=== PATIENT | female | born 1950 | race African-American/Black ===

== ENCOUNTER 2017-02-22 14:45 | Emergency (ER) | payer BC, OTHER ==
[~2017-02-22] VITALS: Ht 172.7 cm; Wt 128.8 kg
[~2017-02-22 14:45] MED LIST: ALDACTONE25 MG PO; ASPIRIN325 PO; CALCIUM 600 +1 EAC1 PO; CARVEDILOL12.5 MG PO; CIPRO500 MG PO; CLINDAMYCIN HC150 MG PO; COLACE100 MG PO; COREG25 MG PO; CYMBALTA60 MG PO; FLAGYL500 MG PO; GLUCOTROL5 MG PO; HUMALOG100 UNIT/2 SQ; HYDROCODONE-AP1 EAC6 PO; LANOXIN 0.120.125 M1 PO; LANTUS100 UNIT/M SUBQ; LASIX 40 MG TAB40 M2 PO; LEVAQUIN 250 M250 MG PO; LISINOPRIL10 MG PO; MIRALAX17 GM PO; MULTI-VITAMIN1 EAC5 PO; NAPROSYN500 MG PO; NEURONTIN 300300 M1 PO; NORCO 5-325 TA1 EACH PO; NORVASC5 MG PO; OMEPRAZOLE 20 M20 MG PO; PLAVIX 75 MG TA75 M1 PO; POTASSIUM20 PO; PRILOSEC 20 MG20 MG PO; PRINIVIL10 MG PO; SIMVASTATIN40 MG PO; TRINATE TABLET1 TAB PO; XARELTO10 MG PO; ZOCOR40 MG PO
[2017-02-22 15:31] LABS: ABSOLUTE LYMPHOCYTES 1.6 thou/uL (0.8-5.3); ABSOLUTE MONOCYTES 0.7 thou/uL (0.0-1.2); ABSOLUTE NEUTROPHILS 4.8 thou/uL (1.6-8.1); BASOPHILS 0.1 %; EOSINOPHILS 0.6 %; HEMATOCRIT 36.5 % (37.0-47.0); HEMOGLOBIN 11.8 gm/dL (12.0-15.0); LYMPHOCYTES 22.1 %; MCH 29.2 pg (26.0-34.0); MCHC 32.3 g/dL (28.0-37.0); MCV 90.6 fL (80.0-100.0); MONOCYTES 9.9 %; MPV 8.9 fl. (7.2-11.1); NUCLEATED RBCS 0 /100WBC; PLATELET COUNT* 202 thou/uL (150-400); POLYS 67.3 %; RBC 4.03 mil/uL (4.20-5.00); RDW-CV 14.7 % (10.5-14.5); WBC 7.1 thou/uL (4.0-11.0)
[2017-02-22 15:38] LABS: CALCIUM 8.6 mg/dL (8.5-10.1); CREATININE 1.3 mg/dL (0.6-1.3); POTASSIUM 4.8 mmol/L (3.5-5.1)
[2017-02-22 15:42] LABS: TOTAL BILIRUBIN 0.3 mg/dL (<0.1-1.0); TOTAL PROTEIN 7.6 g/dL (6.4-8.2)
[2017-02-22 16:02] LABS: INFLUENZA A ANTIGEN None Detected (None Detect); INFLUENZA B ANTIGEN None Detected (None Detect)
[2017-02-22] MEDS ORDERED: CEFUROXIME500 MG PO (16:39)
[2017-02-22] MEDS ORDERED: PROAIR HFA8.5 GM INH (16:39)
[2017-02-22] MEDS ORDERED: PREDNISONE 20 M20 M1 PO (16:39)
[2017-02-22] MEDS ORDERED: TESSALON PERLE100 MG PO (16:39)
[2017-02-22 17:10] VITALS: BP 186/61
== END 2017-02-22 17:11 | disposition home or self-care (01) ==
LOC: M.ERS 14:45
PROVIDERS: Nurse Practitioner Family
DX: J20.9 Acute bronchitis, unspecified (principal); I25.10 Atherosclerotic heart disease of native coronary artery without angina pectoris; I10 Essential (primary) hypertension; E78.00 Pure hypercholesterolemia, unspecified; E11.9 Type 2 diabetes mellitus without complications; I25.2 Old myocardial infarction; J44.9 Chronic obstructive pulmonary disease, unspecified; Z95.0 Presence of cardiac pacemaker; Z95.1 Presence of aortocoronary bypass graft; Z98.890 Other specified postprocedural states; Z90.710 Acquired absence of both cervix and uterus; Z96.653 Presence of artificial knee joint, bilateral; Z88.5 Allergy status to narcotic agent; Z88.0 Allergy status to penicillin; Z88.2 Allergy status to sulfonamides; Z88.8 Allergy status to other drugs, medicaments and biological substances; Z79.4 Long term (current) use of insulin

== ENCOUNTER 2019-01-25 09:45 | Inpatient (IN) | payer BC, OTHER ==
[2019-01-25] VITALS (52 sets, daily range): BP systolic 44–165; BP diastolic 26–116
[~2019-01-25] VITALS: Ht 167.6 cm; Wt 107.8 kg
[~2019-01-25 09:45] MED LIST changes: +CEFUROXIME500 MG PO; +PREDNISONE 20 M20 M1 PO; +PROAIR HFA8.5 GM INH; +TESSALON PERLE100 MG PO
--- NOTE | 2019-01-25 09:55 | NUR ---
FAYE AVILEZ, CALLED FOR PICC PLACEMENT PER DR. CURTIS.
--- NOTE | 2019-01-25 09:58 | NUR ---
RT AT BEDSIDE DRAWING PT ABGs.
[2019-01-25 10:19] LABS: HEMATOCRIT 27.3 % (37.0-47.0); HEMOGLOBIN 8.3 gm/dL (12.0-15.0); MCH 29.4 pg (26.0-34.0); MCHC 30.3 g/dL (28.0-37.0); MCV 97.1 fL (80.0-100.0); NUCLEATED RBCS 1 /100WBC; PLATELET COUNT* 414 thou/uL (150-400); RBC 2.81 mil/uL (4.20-5.00); RDW-CV 17.7 % (10.5-14.5); WBC 18.3 thou/uL (4.0-11.0)
[2019-01-25 10:33] LABS: APTT 21.3 Seconds (25.0-31.3); INR 1.5; PROTIME 15.5 Seconds (9.20-11.50)
[2019-01-25 10:35] LABS: PCO2 35.6 mmHg (35.0-45.0); PO2 71.9 mmHg (75.0-100.0); pH 7.459 (7.340-7.450)
--- NOTE | 2019-01-25 10:40 | NUR ---
FATMATA, FROM INFUSION, AT BEDSIDE ATTEMPTING PICC LINE INSERTION.
[2019-01-25 10:43] LABS: POTASSIUM 4.8 mmol/L (3.5-5.1)
[2019-01-25 11:13] LABS: ALBUMIN 3.5 g/dL (3.4-5.0); CREATININE 3.4 mg/dL (0.6-1.3); TOTAL BILIRUBIN 0.4 mg/dL (<0.1-1.0); TOTAL PROTEIN 7.1 g/dL (6.4-8.2)
[2019-01-25 11:22] LABS: URINE BILIRUBIN NEGATIVE (Negative); URINE BLOOD TRACE (Negative); URINE CLARITY SL CLOUDY; URINE COLOR YELLOW; URINE GLUCOSE-RANDOM 2+ (Negative); URINE KETONES NEGATIVE (Negative); URINE LEUKOCYTES-REFLEX 1+ (Negative); URINE NITRITE-REFLEX NEGATIVE (Negative); URINE PROTEIN NEGATIVE (Negative); URINE SPECIFIC GRAVITY 1.025 (1.005-1.030); URINE UROBILINOGEN 0.2 E.U./dl (0.2-1.0)
[2019-01-25 11:31] LABS: ABSOLUTE LYMPHOCYTES 0.4 thou/uL (0.8-5.3); METAMYELOCYTES 2 %
[2019-01-25 11:32] LABS: ANISOCYTOSIS 1+; LARGE PLATELETS OCCASIONAL; PLATELET ESTIMATE ADEQUATE
[2019-01-25 11:33] LABS: POLYCHROMASIA Occasional
[2019-01-25 11:35] LABS: ABSOLUTE MONOCYTES 1.1 thou/uL (0.0-1.2); ABSOLUTE NEUTROPHILS 16.8 thou/uL (1.6-8.1)
[2019-01-25 11:42] LABS: SQUAMOUS 0-3 Few /LPF (0-3)
[2019-01-25 11:43] LABS: BACTERIA-REFLEX 1-9 Few /HPF (None Seen); URINE RBC 3-10 Few /HPF (0-2); URINE WBC-REFLEX 6-15 Few /HPF (0-5)
[2019-01-25 11:44] LABS: CASTS None Seen /LPF (None Seen); CRYSTALS None Seen /LPF (None Seen); MUCUS None Seen strn/LPF (None Seen)
--- NOTE | 2019-01-25 12:16 | NUR ---
REPORT GIVEN TO JEN CASTRO WHO IS TO ASSUME CARE INPATIENT NURSE.
--- NOTE | 2019-01-25 14:28 | NUR ---
RIGHT BASILIC VESSEL ACCESED FOR TRIPLE LUMEN PICC. LINE PRE-TRIMMED TO 44CM AND ADVANCED TO THE ZERO KASHIF WITH NO RESISTANCE MET. UPPER ARM CIRCUMFERENCE ABOVE INSERTION SITE=14". SHERLOCK MAGNET AND 3CG CONFIRMATION OF TIP TERMINATION AT THE CAVOATRIAL JUNCTION APPRECIATED. GUIDEWIRE REMOVED, LINE FLUSHED AND INSERTION SITE DRESSED. REPORT GIVEN TO DR CURTIS.
--- NOTE | 2019-01-25 16:04 | EKG ---
[place] [address] ELECTROCARDIOGRAM REPORT Name: VICKIE KRAFT Room: [address] ADM IN M.R.#: [id number] Admission: 01/25/19 Attend Phys: Carlos Oropeza Discharge: Date of : 52 Report #: [id number] THIS REPORT FOR: //name// [facility] ED Test Date: 2019-01-25 Test Time: 11:02:38 Pat Name: VICKIE KRAFT Department: Room: [facility] Gender: F Senior Qc Technician: LADI : 1950 Requested By: Simone Malagon Order Number: [id number] MD: Will Whittington Measurements Intervals [place] Rate: 122 P: 39 LA: 135 QRS: 6 QRSD: 106 T: 186 QT: 286 QTc: 408 Interpretive Statements Sinus tachycardia Ventricular premature complex LVH with secondary repolarization abnormality Compared to ECG 11/15/2016 09:01:43 Ventricular premature complex(es) now present Left ventricular hypertrophy now present Sinus rate has increased Electronically Signed On 01-25-2019 16:04:32 SPARERIBS TRIMMER by Will Whittington [email or web address] <ELECTRONICALLY SIGNED> By: Will Whittington MD, [facility] 01/25/19 1604 1102 1102 Will Whittington MD, [facility] /EPI
--- NOTE | 2019-01-25 19:37 | NUR ---
PT RECEIVED FROM ER AT 1235, ALERT BUT DROWSY AND NOT RESPONSIVE. HYPOTENSIVE, FLUID BOLUS 3L COMPLETED. LEVOPHED STARTED AND TITRATED PER PROTOCOL. EKG SHOWS ST. NO O2 SUPPORT. NS AT 250 MLS/HR. INSULIN DRIP PER EMAR. PT HAD A VERY BAD SMELL OF URINE, PARTIAL BATH AND CHERRY CARE GIVEN. CT HEAD AND CHEST DONE. PT NPO STATUS. FAMILY AT THE BEDSIDE, UPDATED REGARDING THE STATUS.
--- NOTE | 2019-01-25 23:00 | NUR ---
TACHYCARDIC HR HIGH 130'S TO 140'S, OCCASIONAL APACED SPIKES CARDIAC MOITOR, REMAINS ON LEVOPHED GTT FOR HYPOTENSION, CALLED DR YOUNG RELATED TO INCREASING HR, PT HAS NOT HAD HOME MEDICATIONS TODAY INCLUDING DIGOXIN, NEW ORDERS NS 500CC BOLUS VIA IV AND DIGOXIN 0.25MG IV X1, WILL INITATE ORDERS AND CONTINUE TO MONITOR.
[2019-01-26] VITALS (140 sets, daily range): BP systolic 71–189; BP diastolic 32–154
--- NOTE | 2019-01-26 07:00 | NUR ---
SLOW PROGRESSION TOWARDS GOALS, ALERT WITH EYES OPEN, NO VISUAL TRACKING NOTED, NOT FOLLOWING COMMANDS, NONVERBAL, REPORTS PT VERBALIZED "BYE" X1 AT HS, TACHYCARDIC HR TRENDING UP TO 170'S, EKG OBTAINED, SPOKE WITH DR YOUNG X2 DURING NOC, DIGOXIN 0.25MG IV X1 WITH MINIMAL EFFECT PER CARDIOLOGY, METOPROL 5MG IVP GIVEN X2 PER ORDER, HR IMPORVING THIS AM DOWN TO 90'S TO ONE-TEENS, REMAINS ON LEVPHED GTT TITRATING DOWN FROM 25MCG TO 10MCG THIS AM VIA INFUSION PUMP, TOTAL 1LITER NS BOLUS GIVEN DURING NOC PER ORDER BY CARDIOLOGY, NS CONTINUOUS 250CC/HR VIA INFUSION PUMP PER ORDER, REMAINS ON INSULIN GTT PER INFUSION PUMP TITRATED TO 5UNITS/HR THIS AM, VALDEZ CATHETER PATENT TO DD, LOW GRADE TEMP 100.6 DURING NOC, FAN IN USE AND HELPFUL FOR FEVER, SAFETY MAINTAINED.
--- NOTE | 2019-01-26 07:37 | CON ---
[address] [address] CONSULTATION Name: ABENAVICKIE Becca Room: [address] IN M.R.#: [id number] Admission: 01/25/19 Attend Phys: Carlos Oropeza Discharge: Date of : 52 Report #: [id number] THIS REPORT FOR: //name// CC: WILLIAM physician/PCP Abhijit Apple DATE OF SERVICE: 01/25/2019 INFECTIOUS DISEASE CONSULTATION ATTENDING PHYSICIAN: Abhijit Apple DO REASON FOR EVALUATION: Sepsis, complicated urinary tract infection, possible pneumonitis as well. HISTORY OF PRESENT ILLNESS: Chart reviewed, patient examined. This is a 68-year-old woman, with known diabetes mellitus type 2 complicated by diffuse vasculopathy, has previous right below knee amputation, who was found on the ground. She was encephalopathic, apparently had progressive weakness. Per record, she is unable to give details of the history and was found to be borderline hypoxemic, elevated troponin level. Lactic acid was 6.5. She was in renal failure with a creatinine of 3.4 and a markedly elevated glucose to 933. Urinalysis did show moderate pyuria, although a little bacteriuria. Chest x-ray and CT were performed of the chest. There is question of early pneumonitis. She is on pressor support at this point and empirically, started on antimicrobials with levofloxacin and vancomycin. ALLERGIES: LISTED TO PENICILLIN, SULFA, CODEINE, PROPOXYPHENE. CURRENT MEDICATIONS: Include levofloxacin dose of vancomycin. She is on insulin drip and norepinephrine. PAST MEDICAL HISTORY: Above noted diabetes mellitus complicated by vasculopathy, has known coronary artery disease, previous aortocoronary bypass grafting and [place] x 3, in a below-knee amputation, elevated cholesterol, hypertension. SOCIAL HISTORY: Nonsmoker, no ethanol. FAMILY HISTORY: Noncontributory. REVIEW OF SYSTEMS: Not reliably obtained. PHYSICAL EXAMINATION: GENERAL: She is lying supine, maintained on room air. She is not really responsive. She is having some facial muscle in particular [place] [address] CONSULTATION Name: KRAFTVICKIE M Room: [address]#: [id number] Admission: 01/25/19 Attend Phys: Carlos Oropeza Discharge: Date of : 52 Report #: [id number] repeated movements, not classic for dyskinesia. She does utter a few sounds, but nothing understandable, appears reasonably well nourished. VITAL SIGNS: Temperature 99, pulse 124, respirations 15, blood pressure 99/43. SKIN: Warm, dry. HEENT: Normocephalic. NECK: Supple. LUNGS: Diminished, otherwise clear breath sounds. HEART: Regular, tachycardic, has had some ectopy. I do not appreciate any murmur. ABDOMEN: Appears to be without peritoneal signs, soft. There is no overt guarding. RECTAL: Deferred. LABORATORY DATA: Initial lactic acid was 6.5, repeat; cefepime 7.3. Troponin elevated at 2.48. CT of the chest, extensive calcifications. She has a focal ground glass infiltrates posterior lateral right lower lobe. CT of the head, no acute process. Urinalysis showed moderate pyuria, little bacteriuria. CBC: White count of 18.3, H and H 8.3 and 27.3, platelets of 414. Electrolytes: Sodium 138, potassium 4.8, chloride 95, bicarbonate is 28, anion gap of 15, BUN and creatinine 96/3.4, glucose of 933. LFTs unremarkable. Albumin of 3.5, total protein 7.1. ABGs; pH 7.459, pCO2 of 35.6, pO2 of 71.9 on room air. ASSESSMENT: Encephalopathy, complicated by marked hyperglycemia. Certainly, I can exclude infectious etiology. Agree with empiric antimicrobial therapy again to cover primary complicated urinary tract infection, perhaps early pneumonitis, certainly at risk for aspiration. At this point, she is hemodynamically labile noted. Received 3 liters of bolus fluid. Noted renal to evaluate. We will see how she does clinically. We will await culture results. I would suspect something unusual based on the history. <ELECTRONICALLY SIGNED> By: Bj Taylor MD 01/26/19 0737 1646 [id number] Taylor MD /nt
--- NOTE | 2019-01-26 10:09 | 2DMMODE ---
[place] [address] 2 D/M-MODE ECHOCARDIOGRAM Name: VICKIE KRAFT Room: [address] IN [facility]#: [id number] Admission: 01/25/19 Attend Phys: Abhijit Apple Discharge: Date of : 52 Date of Service: 01/26/19 1008 Report #: [id number] THIS REPORT FOR: //name// APPROVED REPORT Study performed: 01/25/2019 14:53:03 EXAM: Comprehensive 2D, Doppler, and color-flow Echocardiogram Patient Location: In-Patient Room #: 006 Status: routine BSA: 2.09 HR: 115 bpm BP: 99/43 mmHg Rhythm: NSR Other Information Study Quality: Good Indications elevated bnp 2D Dimensions IVSd: 17.04 (7-11mm) LVOT Diam: 18.66 (18-24mm) LVDd: 41.70 mm PWd: 15.55 (7-11mm) Ascending Ao: 29.38 (22-36mm) LVDs: 35.44 (25-40mm) Aortic Root: 32.98 mm Volumes Left Atrial Volume (Systole) LA ESV Index: 28.20 mL/m2 Aortic Valve AoV Peak Shekhar.: 1.40 m/s AO Peak Gr.: 7.88 mmHg LVOT Max P.95 mmHg AO Mean Gr.: 4.33 mmHg LVOT Mean P.83 mmHg LVOT Max V: 1.22 m/s AO V2 VTI: 15.33 cm LVOT Mean V: 0.77 m/s YAN (VTI): 2.07 cm2 LVOT V1 VTI: 11.60 cm Mitral Valve E/A Ratio: 0.66 MV Decel. Time: 76.66 ms MV E Max Shekhar.: 0.51 m/[place] [address] 2 D/M-MODE ECHOCARDIOGRAM Name: VICKIE KRAFT Room: [address] IN .R.#: [id number] Admission: 01/25/19 Attend Phys: Abhijit Apple Discharge: Date of : 52 Date of Service: 01/26/19 1008 Report #: [id number] MV PHT: 22.23 ms MVA (PHT): 9.90 cm2 TDI E/Lateral E': 10.20 E/Medial E': 8.50 Medial E' Shekhar.: 0.06 m/s Lateral E' Shekhar.: 0.05 m/s Pulmonary Valve PV Peak Shekhar.: 1.92 m/s PV Peak Gr.: 14.73 mmHg Left Ventricle The left ventricle is normal size. There is normal LV segmental wall motion. Moderate concentric left ventricular hypertrophy. Left ventricular systolic function is mildly decreased. LVEF is 45-50%. Grade I - abnormal relaxation pattern. Right Ventricle The right ventricle is normal size. The right ventricular systolic function is normal. Pacemaker lead is present in the right ventricle. Atria The left atrium size is normal. The right atrium size is normal. Aortic Valve Mild aortic valve sclerosis. Mild aortic regurgitation. There is no aortic valvular stenosis. Mitral Valve There is mitral annular calcification. Mild mitral regurgitation. No evidence of mitral valve stenosis. Tricuspid Valve The tricuspid valve is normal in structure. Trace tricuspid regurgitation. Pulmonic Valve The pulmonary valve is normal in structure. Trace pulmonic regurgitation. Great Vessels The aortic root is normal in size. IVC is normal in size and collapses >50% with inspiration[place] [address] 2 D/M-MODE ECHOCARDIOGRAM Name: VICKIE KRAFT Room: [address]#: [id number] Admission: 01/25/19 Attend Phys: Abhijit Apple Discharge: Date of : 52 Date of Service: 01/26/19 1008 Report #: [id number] There is no pericardial effusion. <Conclusion> The left ventricle is normal size. Moderate concentric left ventricular hypertrophy. Left ventricular systolic function is mildly decreased. LVEF is 45-50%. Grade I - abnormal relaxation pattern. The right ventricle is normal size. The left atrium size is normal. Mild aortic valve sclerosis. Mild aortic regurgitation. There is no aortic valvular stenosis. There is mitral annular calcification. Mild mitral regurgitation. No evidence of mitral valve stenosis. The tricuspid valve is normal in structure. The aortic root is normal in size. IVC is normal in size and collapses >50% with inspiration. There is no pericardial effusion. There is normal LV segmental wall motion. <ELECTRONICALLY SIGNED> By: Will Whittington MD, [facility] 01/26/19 1008 100 1008 Will Whittington MD, FACC /INF
--- NOTE | 2019-01-26 11:27 | NUR ---
Nutrition: Consult received for poor intake. Pt admitted with hyperglycemia, ARF, UTI. Wt: 236#. Per ICU rounds, she is NPO, not following commands nor talking. RN stated not comfortable feeding pt at this time. Will follow for POC. On insulin gtt. F/u 01/29/19.
--- NOTE | 2019-01-26 11:43 | CON ---
[address] [address] CONSULTATION Name: ABENAVICKIE M Room: [address] IN M.R.#: [id number] Admission: 01/25/19 Attend Phys: Carlos Oropeza Discharge: Date of : 52 Report #: [id number] THIS REPORT FOR: //name// CC: WILLIAM physician/PCP Abhijit Apple DATE OF SERVICE: 01/25/2019 NEPHROLOGY CONSULTATION She is in ICU bed 6. I am asked to see this 68-year-old female at the request of Dr. Apple for acute kidney injury. CHIEF COMPLAINT: The patient was brought in because of elevated blood sugars. She was lying in urine. She had a strong odor, something similar to ammonia about her. She has had very altered state of consciousness. She is now awake, but was not so earlier, cannot really respond well; however, to any questions. She has been quite dry. She is alone at present. History is gleaned from medical record information. [facility], the last time in 2018. She was apparently seen in the ED back in 2018 for cough and congestion and did not need to remain in the hospital. At that time, her creatinine was 1.3 with an EGFR of 50 mL per minute. Her glucose was 331 at that time, but lactic acid was not elevated. She was not acidotic or ketotic. She was hospitalized in 2017 here at [facility] and at that time had an admission diagnosis of heart failure with marked shortness of air. She had a creatinine at that time also of 1.3. PAST MEDICAL HISTORY: Positive for type 2 DM. I do not know her treatment. She has had multiple falls, peripheral arterial disease, a right BKA, respiratory failure, history of CHF, history of NIKHIL. She has been followed by many of the [facility] physicians. She has a history of carotid artery stenosis and an endarterectomy, a prior syncopal event, chronic systolic congestive heart failure as alluded to above. She has an ischemic cardiomyopathy and has had an ICD placed in 06/2016 with an EF at that time reportedly of 40%. However, later in 2017, her EF was improved to 60% range. She has a history of NSVT. She does have NIKHIL and has been prescribed CPAP. She has hypertension, had a CVA in 2004. FAMILY HISTORY: Not present for any familial renal diseases. It is positive for vascular disease and diabetes. SOCIAL HISTORY: She is , apparently not a tobacco user. No alcohol or recreational drugs. ALLERGIES: MULTIPLE AND NOTED TO CODEINE, PENICILLINS, PROPOXYPH[place] [address] CONSULTATION Name: VICKIE KRAFT Room: [address] IN M.R.#: [id number] Admission: 01/25/19 Attend Phys: Carlos Oropeza Discharge: Date of : 52 Report #: [id number] RECENT CHRONIC MEDICATIONS: Included albuterol 1-2 puffs q. 6 p.r.n., prednisone 40 mg daily, Ceftin 500 mg b.i.d., Tessalon Perles one t.i.d. p.r.n. cough, lispro insulin 15 units subcutaneous a.c. and at bedtime, glipizide 5 mg daily, clopidogrel 75 mg daily, amlodipine 5 mg daily, duloxetine 60 mg daily, simvastatin 40 mg every evening, carvedilol 25 mg b.i.d., multivitamins one daily, potassium chloride 20 mEq 2 daily, aspirin 325 mg daily, digoxin 0.125 mg daily, furosemide 40 mg daily, lisinopril 10 mg daily, omeprazole 20 mg daily, spironolactone 25 mg daily, glargine insulin 70 units subcutaneous b.i.d., 600 mg of Caltrate, vitamin D combination b.i.d., 5/325 of hydrocodone/acetaminophen 1 b.i.d., docusate 100 mg p.r.n. constipation, polyethylene glycol 17 g daily and recent Levaquin 250 mg daily. REVIEW OF SYSTEMS: HEENT: No changes in vision or hearing. CARDIAC: No chest pain. PULMONARY: Denies shortness of air. At present does use CPAP at night. Has COPD. ABDOMEN: No pain at present. Mondragon catheter in place. HEMATOLOGIC AND LYMPHATIC: No malignancy history. Positive anemia. ENDOCRINE: Type 2 DM. MUSCULOSKELETAL: Weakness. PSYCHIATRIC: Depression. NEUROLOGIC: Altered mental status. No TIA, CVA, Parkinson's disease, no seizure disorder. Other 14-point review of systems as above. PHYSICAL EXAMINATION: GENERAL: Her mental status is altered. Her eyes are open. VITAL SIGNS: Her temperature is 36.8, heart rate 120, respirations 15, blood pressure 98/43, O2 sat 98%. HEENT: Normocephalic. Pupils react to light. She has conjunctival pallor. NECK: Supple. CHEST: Shows clear lung orantes. Symmetrical. HEART: Regular rhythm. No rub, no gallop. She does have a pacer defibrillator in place. ABDOMEN: Soft, positive bowel sounds. SKIN: Shows no rashes. She has a right BKA. She has no edema. NEUROLOGIC: Mental status is altered, but no other new focal neurologic findings. PSYCHIATRIC: She does cooperate to exam. LABORATORY DATA: Shows a pH of 7.45, pCO2 of 35, pO2 of 71. Sodium 130, this is on 21% FiO2. Sodium 138, potassium 4.8, chloride 95, CO2 of 28, BUN 96, creatinine 3.4, GFR 16, glucose 933. Lactic acid 6.2, calcium 9. Liver function studies not increased. CK 110 to 118. Troponin 2.26, albumin 3.5. PT 15.5, INR 1.5, PTT 21.3. White count 18,300, hemoglobin 8.3, hematocrit 27.3, [place] [address] CONSULTATION Name: VICKIE KRAFT Becca Room: [address] [facility]#: [id number] Admission: 01/25/19 Attend Phys: Carlos Oropeza Discharge: Date of : 52 Report #: [id number] platelets are 414,000. Urine is negative for protein, ketones, trace blood, leukocyte esterase 1+. Cultures have been drawn and are pending. IMAGING STUDIES: Include a chest CT that was done today that shows extensive coronary artery calcification. No pericardial effusion, no evidence of PE by testing that was done. There was gas in the biliary tree, perhaps representing recent bile duct surgery or papillotomy. She has some ground glass infiltrate in the posterior lateral right lower lung. A head CT also done today shows no acute intracranial abnormality and a chest x-ray that was done today showed the battery pack and defibrillator in the left chest. IMPRESSION: 1. Acute kidney injury in the setting of profound hyperglycemia, nonketotic state, blood sugars over 930 with marked extracellular volume depletion. 2. Underlying chronic kidney disease stage 3 with a creatinine of 1.3 in 2018 and EGFR of 50 mL per minute. 3. Type 2 diabetes mellitus, insulin-dependent. 4. Marked ECV depletion. 5. Lactic acidosis. 6. Obstructive sleep apnea, on CPAP. 7. Right BKA. 8. Peripheral arterial disease. 9. History of systolic congestive heart failure. 10. ICD pacemaker. 11. History of an SVT. 12. Altered mental status in the setting of above. I do not know her chronic status. 13. Elevated troponin with possible demand ischemia. 14. Possible urinary tract infection. 15. Anemia, questionable CKD, nutritional factors or other. 16. Hyperlipidemia. 17. Recent cough and respiratory symptoms. 18. Multiple prior surgical procedures including a partial hysterectomy. 19. Coronary artery disease. 20. Prior carotid endarterectomy in August of 2016. 21. Chronic obstructive pulmonary disease. PLAN: The patient is receiving hydration. Labs will be monitored closely. I am hopeful that her creatinine will decrease towards its baseline. We will maintain hydration and adequate perfusion. Further recommendations to follow. At this point, her blood pressure is somewhat soft, but it does have episodic periods of normalcy. We will follow with you. <ELECTRONICALLY SIGNED> By: Annie Zarate MD 01/26/19 1143 1651 [id number] Zarate MD /nt
--- NOTE | 2019-01-26 12:16 | EKG ---
[place] [address] ELECTROCARDIOGRAM REPORT Name: VICKIE KRAFT Room: [address] ADM IN M.R.#: [id number] Admission: 01/25/19 Attend Phys: Carlos Oropeza Discharge: Date of : 52 Report #: [id number] THIS REPORT FOR: //name// [facility] Test Date: 2019-01-25 Test Time: 23:15:52 Pat Name: VICKIE KRAFT Department: Room: [address] Gender: F Sample Case Porter: UNKNOWN : 1950 Requested By: Kaushal Salgado Order Number: [id number] Fely MD: Will Whittington Measurements Intervals [place] Rate: 154 P: 267 DC: 116 QRS: -10 QRSD: 117 T: 180 QT: 285 QTc: 456 Interpretive Statements Atrial fibrillation with a tachycardic response Incomplete left bundle branch block Probable LVH with secondary repol abnrm ST depression, probably rate related but ischemia must be considered Baseline wander in lead(s) II,III,aVR,aVL,aVF,V1,V3,V4,V5,V6 Compared to ECG 01/25/2019 11:02:38 ST (T wave) deviation is more prominent Sinus tachycardia no longer present Electronically Signed On 01-26-2019 12:16:18 GEOTECHNICIAL PROPERTIES TECHNICIAN by Will Whittington [email or web address] <ELECTRONICALLY SIGNED> By: Will Whittington MD, [facility] 01/26/19 1216 2315 2315 Will Whittington MD, [facility] /EPI
[2019-01-26 14:22] LABS: MCH 29.2 pg (26.0-34.0); MCHC 31.6 g/dL (28.0-37.0); MCV 92.3 fL (80.0-100.0); MPV 9.1 fl. (7.2-11.1); RBC 2.16 mil/uL (4.20-5.00); RDW-CV 17.2 % (10.5-14.5); WBC 26.4 thou/uL (4.0-11.0)
[2019-01-26 14:26] LABS: HEMATOCRIT 19.9 % (37.0-47.0); HEMOGLOBIN 6.3 gm/dL (12.0-15.0)
--- NOTE | 2019-01-26 14:29 | NUR ---
ICU rounds and initial assessment: Pt nurse reported pt doesn't follow commands and doesn't speak words, makes noises. Pt lives at home with who is visiting pt today. Pt has RW, cane, CPAP, hx of HH, OP, SNF. SW/CM to remain available to assist with safe dc planning.
[2019-01-26 14:43] LABS: CALCIUM 7.8 mg/dL (8.5-10.1); MAGNESIUM 2.5 mg/dL (1.8-2.4); PHOSPHORUS* 3.2 mg/dL (2.5-4.9)
--- NOTE | 2019-01-26 17:29 | NUR ---
PATIENT SOMEWHAT PROGRESSED TOWARDS GOALS. DID RECEIVE ONE UNIT OF RBC BLOOD FOR HEMOGLOBIN OF 6.3. NO ACTIVE BLEEDING NOTED AT THIS TIME. PATIENT BECOMING MORE ALERT AND TALKATIVE THROUGHOUT SHIFT. ABLE TO TOLERATE PO INTAKE WHEN ENCOURAGED. REPLACING POTASSIUM AND NEPHRO STARTED D5 FOR SODIUM OF 151. VISTED THIS AFTERNOON. SUGARS REMAIN UNDER 200, INSULIN GTT D/C AND HOME INSULIN RESTRATED SUBQ. LEVO OFF SINCE 1330. BED IN LOWEST POSITION, CALL LIGHT IN REACH, NEWSPAPER EDITOR MANAGING IN PLACE.
[2019-01-26 21:14] LABS: HEMATOCRIT 23.7 % (37.0-47.0); HEMOGLOBIN 7.8 gm/dL (12.0-15.0)
[2019-01-27] VITALS (29 sets, daily range): BP systolic 115–188; BP diastolic 25–83
[2019-01-27 05:44] LABS: HEMATOCRIT 22.7 % (37.0-47.0); HEMOGLOBIN 7.2 gm/dL (12.0-15.0); MCH 28.4 pg (26.0-34.0); MCHC 31.9 g/dL (28.0-37.0); MCV 89.1 fL (80.0-100.0); MPV 9.5 fl. (7.2-11.1); RBC 2.55 mil/uL (4.20-5.00); RDW-CV 18.3 % (10.5-14.5); WBC 24.4 thou/uL (4.0-11.0)
[2019-01-27 06:09] LABS: ALBUMIN 2.3 g/dL (3.4-5.0); CALCIUM 7.5 mg/dL (8.5-10.1); CREATININE 1.5 mg/dL (0.6-1.3); MAGNESIUM 2.5 mg/dL (1.8-2.4); PHOSPHORUS* 2.9 mg/dL (2.5-4.9); TOTAL BILIRUBIN 0.4 mg/dL (<0.1-1.0); TOTAL PROTEIN 5.1 g/dL (6.4-8.2)
--- NOTE | 2019-01-27 07:00 | NUR ---
PROGRESSING TOWARDS GOALS, INTERMITTENT FOLLOWING SIMPLE COMMANDS, VERBAL AT TIMES, CONFUSED, SWALLOWING H2O WITH ASSIST, NO S/S ASPIRATION, MEOPTROLOL 5MG IVP GIVEN X1 FOR HR SUBSTAINING 150'S, METOPROLOL EFFECTIVE, SR, BBB, PAC'S AND PVC TRACING BAGGAGEMASTER, REMAINS ON RA, NO S/S RESPIRATORY DISTRESS NOTED, VALDEZ PATENT TO DD, NO ADVERSE EFFECTS IV ABT NOTED, SAFETY MAINTAINED.
[2019-01-28] VITALS (40 sets, daily range): BP systolic 115–149; BP diastolic 28–120
[2019-01-28 03:57] LABS: ABSOLUTE EOSINOPHILS 0.2 thou/uL (0.0-0.7); ABSOLUTE LYMPHOCYTES 1.5 thou/uL (0.8-5.3); ABSOLUTE NEUTROPHILS 14.6 thou/uL (1.6-8.1); EOSINOPHILS 1.1 %; LYMPHOCYTES 8.7 %; MCH 27.8 pg (26.0-34.0); MCHC 31.2 g/dL (28.0-37.0); MONOCYTES 5.5 %; MPV 9.7 fl. (7.2-11.1); NUCLEATED RBCS 1 /100WBC; PLATELET COUNT* 163 thou/uL (150-400); POLYS 84.7 %; RBC 2.25 mil/uL (4.20-5.00); RDW-CV 17.8 % (10.5-14.5); WBC 17.3 thou/uL (4.0-11.0)
[2019-01-28 04:55] LABS: CALCIUM 7.6 mg/dL (8.5-10.1); MAGNESIUM 2.3 mg/dL (1.8-2.4); PHOSPHORUS* 1.7 mg/dL (2.5-4.9); POTASSIUM 3.7 mmol/L (3.5-5.1); TOTAL BILIRUBIN 0.4 mg/dL (<0.1-1.0); TOTAL PROTEIN 4.8 g/dL (6.4-8.2)
[2019-01-28 05:24] LABS: HEMOGLOBIN 6.3 gm/dL (12.0-15.0)
--- NOTE | 2019-01-28 06:11 | NUR ---
PROGRESSING TOWARDS GOALS, RESTING QUIELTY WITH EYES CLOSED MOST OF NOC, AWAKENS TO VERBAL STIMULI, FOLLOWING SIMPLE COMMANDS AT TIMES, C/O BILAT HIP PAIN WITH REPOSITIONING THAT RESOLVES AT REST, NO S/S ACTIVE BLEEDING NOTED, NSR BBB TRACING RECORDS ANALYST, NO S/S RESPIRATORY DISTRESS, REMAINS ON ROOM-AIR, ENCOURAGED PO FLUID INTAKE, NO S/S ASPIRATION NOTED WITH SWALLOWING, SERUM NA LEVEL IMPROVED FROM 151 ON 01/27/19 TO 145 THIS AM. POTASSIUM REPLACED PER ORDER, SERUM POTASSIUM IMPROVED FROM 3 TO 3.7 THIS AM. HBG DECREASED TO 6.3 THIS AM, NEW ORDER TO TRANSFUSE [address] NOLAN, AWAITING PRBC TO BE READY FOR USE FROM LAB, COURTNEY PATENT TO DD, SAFETY MAINTAINED.
--- NOTE | 2019-01-28 18:41 | NUR ---
PT RESTING IN BED THROUGHOUT SHIFT.REPOSITIONED FREQUENTLY. BG WNL. PT ASSISTED WITH MEALS. TOLERATING PO WELL. RESPONDS TO SIMPLE COMMANDS. TOLERATED BLOOD TRANSFUSION WELL TODAY. FAMILY AT BS AND UPDATED ON PLAN OF CARE
[2019-01-29] VITALS (16 sets, daily range): BP systolic 89–134; BP diastolic 18–65
[2019-01-29 05:40] LABS: CALCIUM 7.4 mg/dL (8.5-10.1); CREATININE 0.8 mg/dL (0.6-1.3); PHOSPHORUS* 1.9 mg/dL (2.5-4.9); POTASSIUM 3.5 mmol/L (3.5-5.1)
[2019-01-29 06:08] LABS: CHOLESTEROL 78 mg/dL (<200); HDL CHOLESTEROL 24 mg/dL (>40); LDL CHOLESTEROL 42 mg/dL (<100); TC:HDL 3.3 Ratio (Not establshd); TRIGLYCERIDE 61 mg/dL (<150); VLDL 12 mg/dL (<40)
[2019-01-29 06:09] LABS: SERUM ASSESSMENT Clear
--- NOTE | 2019-01-29 09:22 | CON ---
[facility] [address] [place] [address] CONSULTATION Name: ABENAVICKIE M Room: [address] IN M.R.#: [id number] Admission: 01/25/19 Attend Phys: Carlos Oropeza Discharge: Date of : 52 Report #: [id number] THIS REPORT FOR: //name// CC: WILLIAM physician/PCP Abhijit Apple INDICATION: Elevated troponin. HISTORY OF PRESENT ILLNESS: The patient is a 68-year-old -Tajik female with a history of ischemic cardiomyopathy, status post ICD placement for primary prevention. She was admitted to the hospital with mental status changes. It appears that she has urosepsis and significant hyperglycemia. In this setting, her troponin is moderately elevated. Per family, she has not been complaining of chest pain. Presently, she is not very coherent and history is not obtainable. The patient's daughter reports she had bypass surgery many years ago. She does not note any recent cardiac complaints. PAST MEDICAL HISTORY: 1. Coronary artery disease, status post coronary artery bypass grafting remotely. 2. EF remotely 40%. More recent noninvasive study showed an EF of 55%-60%. 3. Status post ICD placement for primary prevention. 4. Diabetes. 5. Hypertension. 6. Acute renal failure. 7. History of urinary tract infections. 8. Obstructive sleep apnea. 9. 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 10. Bilateral total knee replacements. 11. Left ankle fracture repair. 12. Partial hysterectomy. 13. x 1. 14. Carotid endarterectomy, 08/2016. FAMILY HISTORY: Apparently noncontributory and not obtained. SOCIAL HISTORY: The patient is a lifelong nonsmoker. She does not drink alcohol, per the records. REVIEW OF SYSTEMS: Not obtainable. PHYSICAL EXAMINATION: VITAL SIGNS: Blood pressure 99/43, pulse 124. GENERAL: This is an elderly female appearing older than stated age, who does not appear to be in distress, but is not really coherent. HEENT: Head is normocephalic, atraumatic. Extraocular muscles intact. NECK: Shows no jugular venous distention. [place] [address] CONSULTATION Name: VICKIE KRAFT Room: [address] IN [facility]#: [id number] Admission: 01/25/19 Attend Phys: Carlos Oropeza Discharge: Date of : 52 Report #: [id number] CHEST: Reveals diminished breath sounds without wheezes or rales. CARDIAC: Reveals a tachycardic rhythm that is regular, without gallop or murmur. ABDOMEN: Reveals normal bowel sounds. The abdomen is soft, nontender. EXTREMITIES: Shows left AKA. No edema. SKIN: Dry. LABORATORY DATA: A 12-lead EKG shows sinus tachycardia, left ventricular hypertrophy and repolarization abnormalities. Chest x-ray shows no evidence of pneumonia, pneumothorax or heart failure. Labs are evaluated. Sodium 138, potassium 4.8, chloride 95, bicarbonate 28, BUN 96, creatinine 3.4, serum glucose 519. LFTs within normal limits. Lactic acid 7.3. Troponin on admission 2.28, subsequently 2.26 and 2.48. NT-proBNP 74126. White blood cell count 18.3, hemoglobin 8.3, platelet count 414,000. IMPRESSION AND RECOMMENDATIONS: 1. Elevated troponin. The patient is not having symptoms to suggest acute coronary syndrome. Her troponin is likely elevated in the setting of a type 2 myocardial infarction with cardiac strain due to underlying sepsis. Would continue to treat conservatively at this point in time. 2. Tachycardia, likely due to acute illness, sepsis and possible hypovolemia. Would recommend volume bolus at this point in time. 3. History of cardiomyopathy with normalization on her most recent noninvasive studies. I would like to repeat an echocardiogram at this time. 4. History of hypertension. Blood pressure low at this time. We will give fluid bolus and follow clinically. 5. Sepsis/urosepsis per primary physician. 6. Diabetes per primary physician. <ELECTRONICALLY SIGNED> By: Kaushal Salgado MD, FACC 01/29/19 0922 1701 [id number] Salgado MD, FACC /nt
--- NOTE | 2019-01-29 09:43 | NUR ---
Nutrition: follow up note. Diet advanced to CHO controlled. Pt now tolerating po well. Albumin 2, BG 126. Wt: 243#. H/o DM, HTN, CAD. Will continue to follow per protocol. Mild nutrition risk.
[2019-01-29 09:47] LABS: ABSOLUTE EOSINOPHILS 0.3 thou/uL (0.0-0.7); ABSOLUTE LYMPHOCYTES 1.4 thou/uL (0.8-5.3); ABSOLUTE NEUTROPHILS 9.2 thou/uL (1.6-8.1); BASOPHILS 0.1 %; EOSINOPHILS 2.9 %; HEMATOCRIT 24.9 % (37.0-47.0); HEMOGLOBIN 8.1 gm/dL (12.0-15.0); LYMPHOCYTES 11.6 %; MCH 28.3 pg (26.0-34.0); MCHC 32.7 g/dL (28.0-37.0); MCV 86.3 fL (80.0-100.0); MONOCYTES 8.2 %; MPV 9.8 fl. (7.2-11.1); NUCLEATED RBCS 0 /100WBC; PLATELET COUNT* 174 thou/uL (150-400); POLYS 77.2 %; RBC 2.88 mil/uL (4.20-5.00); RDW-CV 17.2 % (10.5-14.5); WBC 11.9 thou/uL (4.0-11.0)
--- NOTE | 2019-01-29 11:40 | NUR ---
ICU rounds: Pt is tele status, to transfer to Room 232
--- NOTE | 2019-01-29 12:41 | NUR ---
THIS COVER MAKER ASSUMED CARE OF PT AT SHIFT REPORT AT 0700 PT PROGRESSED TOWARD GOALS AND WAS TRANSFERED TO THE TELEY FLOOR ROOM 232 ALL OF PT BELONGING INCLUDING MEDICINE WAS PACKED AND SENT WITH NURSE. PT WAS TRANSPORTED VIA BED WITH NURSING STAFF CARL LI AND GISSELL
[2019-01-29 18:56] LABS: URINE BILIRUBIN NEGATIVE (Negative); URINE BLOOD TRACE (Negative); URINE CLARITY CLEAR; URINE COLOR YELLOW; URINE GLUCOSE-RANDOM NEGATIVE (Negative); URINE KETONES NEGATIVE (Negative); URINE LEUKOCYTES-REFLEX TRACE (Negative); URINE NITRITE-REFLEX NEGATIVE (Negative); URINE PROTEIN NEGATIVE (Negative); URINE SPECIFIC GRAVITY 1.015 (1.005-1.030); URINE UROBILINOGEN 0.2 E.U./dl (0.2-1.0)
[2019-01-29 19:07] LABS: SQUAMOUS 0-3 Few /LPF (0-3)
[2019-01-29 19:08] LABS: URINE RBC 0-2 Rare /HPF (0-2); URINE WBC-REFLEX 6-15 Few /HPF (0-5)
[2019-01-29 19:09] LABS: BACTERIA-REFLEX 1-9 Few /HPF (None Seen); CRYSTALS None Seen /LPF (None Seen); HYALINE CASTS 0-3 Few /LPF (None Seen); MUCUS 0-3 Light strn/LPF (None Seen)
[2019-01-30 00:38] VITALS: BP 110/56
[2019-01-30 02:10] LABS: GLYCOHEMOGLOBIN (HGB A1C) 7.4 % (4.8-5.6)
--- NOTE | 2019-01-30 04:18 | NUR ---
Pt is aox4, running SR on telemetry, respirations are even and unlabored. Pt is not in acute distress at this time.
[2019-01-30 04:21] LABS: ABSOLUTE EOSINOPHILS 0.2 thou/uL (0.0-0.7); ABSOLUTE LYMPHOCYTES 1.5 thou/uL (0.8-5.3); ABSOLUTE MONOCYTES 1.3 thou/uL (0.0-1.2); ABSOLUTE NEUTROPHILS 11.9 thou/uL (1.6-8.1); BASOPHILS 0.3 %; EOSINOPHILS 1.6 %; HEMATOCRIT 29.4 % (37.0-47.0); HEMOGLOBIN 9.5 gm/dL (12.0-15.0); LYMPHOCYTES 9.8 %; MCH 27.6 pg (26.0-34.0); MCHC 32.2 g/dL (28.0-37.0); MCV 85.8 fL (80.0-100.0); MONOCYTES 8.8 %; MPV 9.4 fl. (7.2-11.1); NUCLEATED RBCS 0 /100WBC; PLATELET COUNT* 218 thou/uL (150-400); POLYS 79.5 %; RBC 3.43 mil/uL (4.20-5.00); RDW-CV 17.2 % (10.5-14.5)
[2019-01-30 04:30] VITALS: BP 150/62
[2019-01-30 04:36] LABS: ALBUMIN 2.3 g/dL (3.4-5.0); CALCIUM 8.4 mg/dL (8.5-10.1); POTASSIUM 3.3 mmol/L (3.5-5.1); TOTAL BILIRUBIN 0.4 mg/dL (<0.1-1.0)
[2019-01-30 08:12] VITALS: BP 101/34
[2019-01-30] MEDS ORDERED: HYDROCODON-ACE1 EAC7 PO (11:20)
[2019-01-30 12:15] VITALS: BP 131/55
--- NOTE | 2019-01-30 13:33 | NUR ---
CONTINUE TO FOLLOW, MET WITH PT AND SPOUSE TO DISCUSS DC PLAN TO SNF, IN AGREEMENT. PT DROWSY. DISCUSSED OPTIONS WITH SPOUSE, HE STATED PT HAS BEEN TO [facility] IN THE PAST AND WANTED TO TRY ANOTHER OPTION. DISCUSSED OPTIONS IN INSURANCE NETWORK, HE WANTED [facility] CALLED AND IF THEY WERE UNABLE TO ACCEPT, WOULD RECONSIDER [facility]. CALLED AND FAXED REFERRAL TO [facility]. AWAIT CALL BACK
--- NOTE | 2019-01-30 15:32 | NUR ---
VSS, ASSUMED CARE IN THE AM, ASSESSMENT PERFORMED AND CHARTED, FALL PRECAUTIONS IN PLACE AND CALL LIGHT IN REACH, PT IS TRACING SR ON THE MONITOR, SHE HAS A PACE MAKER, PT IS BEDREST, SHE IS A Q2 TURN, HAS VALDEZ IN PLACE AND IS DRAING, PT GOAL SI TO WORK WITH PT/OT, WILL FOLLOW WITH PLAN OF CARE,
[2019-01-30 16:01] VITALS: BP 125/43
[2019-01-30 20:30] VITALS: BP 108/38
[2019-01-31] VITALS: BP 87/45
[2019-01-31 04:00] VITALS: BP 143/119
[2019-01-31 04:35] LABS: ABSOLUTE EOSINOPHILS 0.2 thou/uL (0.0-0.7); ABSOLUTE LYMPHOCYTES 1.8 thou/uL (0.8-5.3); ABSOLUTE MONOCYTES 1.2 thou/uL (0.0-1.2); ABSOLUTE NEUTROPHILS 8.9 thou/uL (1.6-8.1); BASOPHILS 0.3 %; EOSINOPHILS 1.8 %; HEMATOCRIT 23.6 % (37.0-47.0); HEMOGLOBIN 7.7 gm/dL (12.0-15.0); LYMPHOCYTES 14.8 %; MCH 28.5 pg (26.0-34.0); MCHC 32.8 g/dL (28.0-37.0); MONOCYTES 9.9 %; NUCLEATED RBCS 0 /100WBC; PLATELET COUNT* 180 thou/uL (150-400); POLYS 73.2 %; RBC 2.71 mil/uL (4.20-5.00); RDW-CV 17.5 % (10.5-14.5); WBC 12.2 thou/uL (4.0-11.0)
[2019-01-31 04:55] LABS: ALBUMIN 1.9 g/dL (3.4-5.0); CALCIUM 7.7 mg/dL (8.5-10.1); TOTAL BILIRUBIN 0.3 mg/dL (<0.1-1.0)
[2019-01-31 05:04] LABS: PREALBUMIN 12.4 mg/dL (18.0-35.7)
[2019-01-31 05:05] LABS: POTASSIUM 4.5 mmol/L (3.5-5.1)
--- NOTE | 2019-01-31 05:43 | NUR ---
Pt is aox4, running SR with PVCs on telemetry, respirations are even and unlabored. Pt is not in acute distress at this time.
[2019-01-31 06:36] LABS: ESR (SEDRATE) 65 mm/hr (0-30)
[2019-01-31 08:00] VITALS: BP 129/47
[2019-01-31 09:35] VITALS: BP 129/47
--- NOTE | 2019-01-31 13:52 | NUR ---
PER [facility], THEY CAN ACCEPT PT AT DC AND WILL SUBMIT FOR INSURANCE AUTH. PT OFF UNIT THIS AM FOR PROCEDURE. UNABLE TO REACH SPOUSE BY PHONE
[2019-01-31 16:00] VITALS: BP 107/46
--- NOTE | 2019-01-31 16:21 | NUR ---
ASSUMED PT CARE AT 0730. ASSESSMENT COMPLETED CHARTED. ABLE TO MAKE NEEDS KNOWN. UP WITH [facility] TO CHAIR TODAY FOR SUPPER, LEFT BKA, AT BEDSIDE. NO C/O PAIN OR DISCOMFORT. [id number] COMPLETED CHARTED. RESTING IN THE CHAIR AT THIS TIME, STATED BOTTOM HURT, WAFFLE CUSHION IN PLACE NOW. WILL CONTINUE TO MONITOR.
[2019-01-31 20:00] VITALS: BP 128/47
--- NOTE | 2019-01-31 20:00 | NUR ---
RECEIVED REPORT AND ASSUMED CARE OF PT, ASSESSMENT COMPLETED. PT RESTING WITH EYES CLOSED. QUESTIONS ANSWERED WITH SHORT PHRASES DUE TO EXPRESSIVE APHAGSIA. TELEMETRY ON SHOWING SR. WILL CONT TO MONITOR AND ASSIST NEEDED.
[2019-02-01] VITALS: BP 100/46
[2019-02-01 04:00] VITALS: BP 124/49
[2019-02-01 06:09] LABS: ABSOLUTE EOSINOPHILS 0.3 thou/uL (0.0-0.7); ABSOLUTE LYMPHOCYTES 1.8 thou/uL (0.8-5.3); ABSOLUTE NEUTROPHILS 5.6 thou/uL (1.6-8.1); BASOPHILS 0.2 %; EOSINOPHILS 3.1 %; HEMATOCRIT 22.4 % (37.0-47.0); HEMOGLOBIN 7.2 gm/dL (12.0-15.0); LYMPHOCYTES 20.8 %; MCH 28.2 pg (26.0-34.0); MCHC 32.3 g/dL (28.0-37.0); MCV 87.3 fL (80.0-100.0); MONOCYTES 11.1 %; MPV 9.6 fl. (7.2-11.1); NUCLEATED RBCS 0 /100WBC; PLATELET COUNT* 198 thou/uL (150-400); POLYS 64.8 %; RBC 2.57 mil/uL (4.20-5.00); RDW-CV 17.4 % (10.5-14.5); WBC 8.7 thou/uL (4.0-11.0)
--- NOTE | 2019-02-01 06:12 | NUR ---
SLEPT WELL, TURNED Q 2HR FROM SIDE TO SIDE. NO BREAKDOWN NOTED. INCONT OF STOOL. VALDEZ PATENT. TOOK HS MEDS WITHOUT DIFFICULTY. TELEMETRY SHOWING SR. NO CHANGE IN ASSESSMENT. HS GOALS OF REST AND SAFETY ACHIEVED. HOURLY ROUNDING OBSERVED.
[2019-02-01 06:18] LABS: CALCIUM 8.2 mg/dL (8.5-10.1); CREATININE 0.9 mg/dL (0.6-1.3); POTASSIUM 4.5 mmol/L (3.5-5.1)
[2019-02-01 08:00] VITALS: BP 116/52
--- NOTE | 2019-02-01 12:02 | NUR ---
ORDERS NOTED FOR DC TO SNF. SPOKE WITH [facility], THEY HAVE INSURANCE AUTH. DISCUSSED WITH NURSE, STATED PT HAS TO HAVE A NORMAL 'STOOL' PRIOR TO DC. WILL FOLLOW AND ARRANGE. CHART COPIED.
[2019-02-01 12:22] VITALS: BP 112/58
[2019-02-01 14:34] LABS: HEMATOCRIT 24.7 % (37.0-47.0); HEMOGLOBIN 7.8 gm/dL (12.0-15.0)
[2019-02-01 15:35] VITALS: BP 110/60
[2019-02-01 20:00] VITALS: BP 117/58
--- NOTE | 2019-02-01 20:00 | NUR ---
RECEIVED REPORT AND ASSUMED CARE OF PT, ASSESSMENT COMPLETED. PT PLEASANT AND SMILING. ASSISTED WITH REPOSITIONING. INCONT OF LIQ BLACK TARRY STOOL. SM AREA TO RT BUTTOCK ABOUT TO OPEN DUE TO MOISTURE. TELEMETRY ON SHOWING SR. WILL CONT TO MONITOR AND ASSIST NEEDED.
[2019-02-02] VITALS: BP 102/47
[2019-02-02 04:00] VITALS: BP 85/39
--- NOTE | 2019-02-02 05:08 | NUR ---
AWAKE OCC DURING NIGHT. ASKING TO BE TURNED AND FREQ WANTING SOMETHING TO DRINK. NO CHANGE IN ASSESSMENT. TELEMETRY CONT TO SHOW SR. HS GOALS OF REST AND SAFETY ACHIEVED. HOURLY ROUNDING OBSERVED.
[2019-02-02 08:00] VITALS: BP 93/45
[2019-02-02 12:04] VITALS: BP 124/66
--- NOTE | 2019-02-02 13:24 | NUR ---
ASSUMED CARE OF PATIENT THIS AM AT 0730. PATIENT IS ALERT AND ORIENTED X 3 TO 4 WITH PERIOOS OF FORGETFULNESS. TELE SHOWS NSR. PATIENT ASSISTED WITH MEALS AND ADLS. SHE C/O PAIN TO HER HIPS AND LEFT HIP. SMALL DARKENED AREA NOTED TO RIGHT BUTTOCK. PICTURE TAKEN AND WOUND CARE NURSE NOTIFIED. DR HUBBARD TO ROUND THIS AM. PLANS TO DISCHARGE TO SNF THIS AFTERNOON.
[2019-02-02 14:01] LABS: ABSOLUTE EOSINOPHILS 0.2 thou/uL (0.0-0.7); ABSOLUTE LYMPHOCYTES 1.3 thou/uL (0.8-5.3); ABSOLUTE MONOCYTES 0.6 thou/uL (0.0-1.2); BASOPHILS 0.3 %; EOSINOPHILS 2.1 %; HEMATOCRIT 24.8 % (37.0-47.0); LYMPHOCYTES 17.9 %; MCH 27.9 pg (26.0-34.0); MCHC 32.2 g/dL (28.0-37.0); MCV 86.8 fL (80.0-100.0); MONOCYTES 9.1 %; MPV 8.8 fl. (7.2-11.1); NUCLEATED RBCS 0 /100WBC; PLATELET COUNT* 218 thou/uL (150-400); POLYS 70.6 %; RBC 2.86 mil/uL (4.20-5.00); RDW-CV 17.3 % (10.5-14.5); WBC 7.1 thou/uL (4.0-11.0)
--- NOTE | 2019-02-02 14:02 | NUR ---
ORDERS NOTED FOR DC TO SNF. SPOKE WITH [facility], THEY HAVE AUTH AND CAN ACCEPT PT TODAY. FAXED ORDERS AND SET UP AMBULANCE FOR 330PM. NURSE HAS NUMBER TO CALL REPORT. CHART COPIED
[2019-02-02 14:24] LABS: ALBUMIN 2.1 g/dL (3.4-5.0); CALCIUM 8.5 mg/dL (8.5-10.1); POTASSIUM 4.8 mmol/L (3.5-5.1); TOTAL BILIRUBIN 0.2 mg/dL (<0.1-1.0); TOTAL PROTEIN 5.6 g/dL (6.4-8.2)
--- NOTE | 2019-02-02 15:23 | NUR ---
WOUND CARE NOTE: ALERTED PER PATIENT'S RN OF A WOUND. PATIENT PRESENTS WITH WHAT APPEARS TO BE AN EVOLVING DEEP TISSUE INJURY TO THE RIGHT SIDE OF HER SACRUM MEASURING 6.5X7X0.2. DARK DISCOLORED AREA WITH PARTIAL THICKNESS BREAKDOWN NOTED TO THE EDGE OF THE WOUND. OPTIFOAM AG WAS APPLIED OVER THIS AREA AND SECURED WITH A TEGADERM. RECOMMEND Q2 HOUR TURNS, KEEP OFF WOUND ENCOURAGE GOOD NUTRTION/HYDRATION MONITOR WOUND CLOSELY FOR ANY CHANGES
[2019-02-02] MEDS ORDERED: CEFDINIR300 MG PO (15:35)
[2019-02-02 16:01] VITALS: BP 124/66
--- NOTE | 2019-02-02 22:46 | CON ---
[address] [address] CONSULTATION Name: VICKIE KRAFT Room: [address] IN M.R.#: [id number] Admission: 01/25/19 Attend Phys: Carlos Oropeza Discharge: 02/02/19 Date of : 52 Report #: [id number] THIS REPORT FOR: //name// CC: Roosevelt THOMAS physician/PCP Abhijit Apple DICTATED BY: Dinah Hayden [facility] DATE OF SERVICE: 01/30/2019 REASON FOR CONSULTATION: Acute anemia and elevated LFTs. HISTORY OF PRESENT ILLNESS: This is a 68-year-old female who presented to the Emergency Room for generalized weakness that had been onset for several weeks. When EMS was called, she was noted to have an elevated blood sugar. She was found to be lying in urine and strong odor of ammonia and in a very disabled state when they found her, her mucous membranes were very dry and cracked at that time. The patient is unable to give much of the history and her was not at the bedside at this time and the patient primarily lives at home with her and daughter who helps take care of her. The patient was last seen by us back in 08/2013. She had a colonoscopy that showed severe colonic ischemia from the splenic down to the distal sigmoid with internal and external hemorrhoids. On admission, the patient's hemoglobin was 8.3. She dropped down to 6.3 the following day, she got a unit of blood, she came back up into the 8s. She dropped again on 8 down to 6.3, got another unit of blood and she is up to 9.5 at this particular time. In talking to the nurse, the APICULTURIST noticed that she had a very dark stool. She did not say black, but very dark. She has been on Plavix in the past, but none since her anemia has been noted. The patient continues to be somewhat encephalopathic and falls asleep when asking any questions. She was also noted to have urosepsis at the time of admission as well. ALLERGIES: PENICILLIN, SULFA, CODEINE, PROPOXYPHENE. MEDICATIONS: From home include insulin, glipizide, Plavix, Norvasc, Cymbalta, Zocor, Coreg, multivitamin, potassium, aspirin, digoxin, Lasix, lisinopril, Prilosec, spironolactone, Lantus, Caltrate, [place], Colace, MiraLax, and Levaquin. PAST MEDICAL HISTORY: Coronary artery disease, hypertension, high cholesterol, diabetes. She has had an NC x 3. COPD. She wears CPAP at night. PAST SURGICAL HISTORY: She has got a pacemaker and defibrillator. She has had a previous CABG. She has had bilateral total knee replacement and also a right BKA, carotid endarterectomy and a partial hysterectomy, [place] [address] CONSULTATION Name: VICKIE KRAFT Room: [address]#: [id number] Admission: 01/25/19 Attend Phys: Carlos Oropeza Discharge: 02/02/19 Date of : 52 Report #: [id number] repair. FAMILY HISTORY: Noncontributory. SOCIAL HISTORY: Denies any alcohol, tobacco or illegal drug use. REVIEW OF SYSTEMS: A 12-point review of systems is essentially negative except what is mentioned in the HPI. PHYSICAL EXAMINATION: HEART: Regular rate and rhythm. LUNGS: Diminished, but clear. ABDOMEN: Soft, positive bowel sounds in all 4 quadrants with no masses or tenderness noted. VITAL SIGNS: Temperature 36.3, pulse 75, respirations 12, blood pressure 101/44. LABORATORY DATA: Hemoglobin 9.5, white count is 15, platelets 218. Sodium 144, potassium 3.3, GFR 67. Hemoglobin A1c is 7.4. BNP on admission was greater than 20,000. She had an elevated troponin level as well. Liver enzymes, total bilirubin 0.4, alkaline phosphatase 108, ALT is 871, AST is 255 and is trending down. ALT is going up. IMPRESSION: 1. Acute anemia. 2. Question melanotic stool. 3. Transaminitis. 4. History of some congestive heart failure, likely is related to shock liver on her elevated liver enzymes. 5. Anticoagulant therapy, Plavix. 6. Urinary tract infection. 7. Some encephalopathy. PLAN: 1. EGD tomorrow. 2. We will get an ultrasound of her abdomen to evaluate her LFTs. 3. We will give the patient some laxatives since she has a history of some constipation. 4. We will await and see what her results are and see if she is able to tolerate a prep at all given her mental status changes. [address] [address] CONSULTATION Name: VICKIE KRAFT Room: [address] IN M.R.#: [id number] Admission: 01/25/19 Attend Phys: Carlos Oropeza Discharge: 02/02/19 Date of : 52 Report #: [id number] Thank you for allowing us to participate in this patient's care. Please do not hesitate to call with any questions in regard to this consult. <ELECTRONICALLY SIGNED> By: Nikos Piper DO 02/02/19 2246 1128 1232Nikos Piper DO /nt
--- NOTE | 2019-02-05 13:09 | PATH ---
[address] [address] PATHOLOGY RPT PROCEDURE Name: VICKIE KRAFT Becca Room: [address] IN .R.#: [id number] Admission: 01/25/19 Date of : 52 Discharge: 02/02/19 Report #: [id number] Path Case #: [id number] [facility] Accession Number: [id number] . 01 Material submitted: . PART A: stomach - ANTRAL BIOPSY FOR H. PYLORI PART B: stomach - BIOPSY OF GASTRIC FUNDUS ULCERTATION. Modifiers: fundus . 01 Clinical history: . A. Biopsy for H. pylori . 02 Diagnosis: A. "Antral biopsy for H. pylori", biopsy: - Gastric antral-type mucosa with mild reactive changes and mild chronic inflammation. (See comment) . B. "Biopsy of gastric fundus ulceration", biopsy: - Gastric mucosa with marked acute and chronic inflammation, necrosis/ulceration, granulation tissue and reactive/regenerative changes. (See comment) [facility] 02/02/2019 1135 Local . 02 Comment: Properly controlled special stains are performed. . H. pylori (block A1) - Negative for organisms; H. pylori (block B1) - Negative for organisms; AE1/AE3 (block B1) - No abnormal staining. . No malignancy is seen. Clinical and endoscopic correlation is recommended. (CLW/db; 02/02/2019) . 02 Electronically signed: . Chrystal Dewitt MD, Pathologist NPI- [id number] . 01 Gross description: . A. Received in formalin labeled "Vickie Kraft, antral biopsy for H. pylori," is an elongate segment of pale berger soft tissue measuring 0.6 x 0.2 x 0.2 cm in greatest dimensions. The specimen is submitted entirely in cassette A1. . B. Received in formalin labeled "Vickie Kraft, biopsy of gastric fungus ulceration," is a segment of yellow-berger soft tissue measuring 0.4 x 0.2 x 0.2 cm in greatest dimensions. The specimen is submitted entirely in cassette B1. ([facility]; 02/01/2019) [place] [address] PATHOLOGY RPT PROCEDURE Name: VICKIE KRAFT Room: [address] IN M.R.#: [id number] Admission: 01/25/19 Date of : 52 Discharge: 02/02/19 Report #: [id number] Path Case #: [id number] XDC/XDC 02/01/2019 1232 Local . 02 Pathologist provided ICD-10: K29.50, K25.9 . 02 CPT . 421254, 400665, M69144, A42188 Specimen Comment: A courtesy copy of this report has been sent to [phone] Specimen Comment: [phone] Specimen Comment: Report sent to Performed at: 01 [facility] [address] [id number] MD Yoni Glass MD Phone: [phone] Performed at: [address] [id number] MD Marques Ventura MD Phone: [phone]
== END 2019-02-02 16:53 | DRG 871 ==
LOC: M.ERS 09:45 → M.TBA-ER 11:41 → M.2W 11:41 → M.ICU 11:41 → M.2W 01-29 12:26
PROVIDERS: Family Medicine; Internal Medicine; Internal Medicine Gastroenterology; Internal Medicine Nephrology; Specialist; ADMIT Internal Medicine
PROC: 30233N1 Transfusion of Nonautologous Red Blood Cells into Peripheral Vein, Percutaneous Approach (ICD-10-PCS; principal; 2019-01-26)
PROC: 0DB78ZX Excision of Stomach, Pylorus, Via Natural or Artificial Opening Endoscopic, Diagnostic (ICD-10-PCS; 2019-01-30)
PROC: 0DB68ZX Excision of Stomach, Via Natural or Artificial Opening Endoscopic, Diagnostic (ICD-10-PCS; 2019-01-30)
DX: A41.9 Sepsis, unspecified organism (principal); E11.00 Type 2 diabetes mellitus with hyperosmolarity without nonketotic hyperglycemic-hyperosmolar coma (NKHHC); G93.41 Metabolic encephalopathy; I21.A1 Myocardial infarction type 2; I50.23 Acute on chronic systolic (congestive) heart failure; K26.0 Acute duodenal ulcer with hemorrhage; N39.0 Urinary tract infection, site not specified; N17.9 Acute kidney failure, unspecified; M31.9 Necrotizing vasculopathy, unspecified; I13.0 Hypertensive heart and chronic kidney disease with heart failure and stage 1 through stage 4 chronic kidney disease, or unspecified chronic kidney disease; E87.0 Hyperosmolality and hypernatremia; D62 Acute posthemorrhagic anemia; J96.10 Chronic respiratory failure, unspecified whether with hypoxia or hypercapnia; I25.10 Atherosclerotic heart disease of native coronary artery without angina pectoris; R65.20 Severe sepsis without septic shock; E78.5 Hyperlipidemia, unspecified; Z96.653 Presence of artificial knee joint, bilateral; J44.9 Chronic obstructive pulmonary disease, unspecified; R29.6 Repeated falls; E11.51 Type 2 diabetes mellitus with diabetic peripheral angiopathy without gangrene; G47.33 Obstructive sleep apnea (adult) (pediatric); I11.0 Hypertensive heart disease with heart failure; E11.22 Type 2 diabetes mellitus with diabetic chronic kidney disease; N18.3 Chronic kidney disease, stage 3 (moderate); D64.9 Anemia, unspecified; R74.0 Nonspecific elevation of levels of transaminase and lactic acid dehydrogenase [LDH]; E66.9 Obesity, unspecified; E87.6 Hypokalemia; D63.8 Anemia in other chronic diseases classified elsewhere; K59.00 Constipation, unspecified; I25.2 Old myocardial infarction; Z95.0 Presence of cardiac pacemaker; Z90.710 Acquired absence of both cervix and uterus; Z95.1 Presence of aortocoronary bypass graft; Z79.2 Long term (current) use of antibiotics; Z83.3 Family history of diabetes mellitus; Z82.49 Family history of ischemic heart disease and other diseases of the circulatory system; Z79.82 Long term (current) use of aspirin; Z79.4 Long term (current) use of insulin; Z79.891 Long term (current) use of opiate analgesic; Z79.899 Other long term (current) drug therapy; Z89.511 Acquired absence of right leg below knee; Z88.5 Allergy status to narcotic agent; Z88.0 Allergy status to penicillin; Z88.2 Allergy status to sulfonamides; Z88.8 Allergy status to other drugs, medicaments and biological substances; Z68.38 Body mass index [BMI] 38.0-38.9, adult

== ENCOUNTER → 2019-03-05 | Outpatient (CLI) | payer BC, OTHER ==
[~2019-03-05] MED LIST changes: +CEFDINIR300 MG PO; +HYDROCODON-ACE1 EAC7 PO
== END ==
LOC: M.WC 01:29
DX: E11.622 Type 2 diabetes mellitus with other skin ulcer (principal); L89.323 Pressure ulcer of left buttock, stage 3; L98.412 Non-pressure chronic ulcer of buttock with fat layer exposed; L89.890 Pressure ulcer of other site, unstageable; L97.222 Non-pressure chronic ulcer of left calf with fat layer exposed; E11.319 Type 2 diabetes mellitus with unspecified diabetic retinopathy without macular edema; E11.22 Type 2 diabetes mellitus with diabetic chronic kidney disease; N18.9 Chronic kidney disease, unspecified; E66.01 Morbid (severe) obesity due to excess calories; G47.30 Sleep apnea, unspecified; I48.91 Unspecified atrial fibrillation; I25.5 Ischemic cardiomyopathy; I50.9 Heart failure, unspecified; I25.2 Old myocardial infarction; K21.9 Gastro-esophageal reflux disease without esophagitis; M19.90 Unspecified osteoarthritis, unspecified site; Z96.659 Presence of unspecified artificial knee joint; Z89.512 Acquired absence of left leg below knee; Z95.0 Presence of cardiac pacemaker; Z79.4 Long term (current) use of insulin; Z86.73 Personal history of transient ischemic attack (TIA), and cerebral infarction without residual deficits

== ENCOUNTER → 2019-03-12 | Outpatient (CLI) | payer BC, OTHER | LOC: M.WC 05:46 | DX: E11.622 Type 2 diabetes mellitus with other skin ulcer (principal); L89.890 Pressure ulcer of other site, unstageable; L97.212 Non-pressure chronic ulcer of right calf with fat layer exposed; L89.313 Pressure ulcer of right buttock, stage 3; L98.412 Non-pressure chronic ulcer of buttock with fat layer exposed; E11.22 Type 2 diabetes mellitus with diabetic chronic kidney disease; N18.9 Chronic kidney disease, unspecified; E11.319 Type 2 diabetes mellitus with unspecified diabetic retinopathy without macular edema; E66.01 Morbid (severe) obesity due to excess calories; G47.30 Sleep apnea, unspecified; I48.91 Unspecified atrial fibrillation; I25.5 Ischemic cardiomyopathy; I50.9 Heart failure, unspecified; I25.2 Old myocardial infarction; K21.9 Gastro-esophageal reflux disease without esophagitis; M19.90 Unspecified osteoarthritis, unspecified site; Z86.73 Personal history of transient ischemic attack (TIA), and cerebral infarction without residual deficits ==

== ENCOUNTER → 2019-03-19 | Outpatient (CLI) | payer BC, OTHER | LOC: M.WC 01:55 | DX: E11.622 Type 2 diabetes mellitus with other skin ulcer (principal); L89.890 Pressure ulcer of other site, unstageable; L97.212 Non-pressure chronic ulcer of right calf with fat layer exposed; L89.313 Pressure ulcer of right buttock, stage 3; L98.411 Non-pressure chronic ulcer of buttock limited to breakdown of skin; E11.319 Type 2 diabetes mellitus with unspecified diabetic retinopathy without macular edema; E11.22 Type 2 diabetes mellitus with diabetic chronic kidney disease; N18.9 Chronic kidney disease, unspecified; E66.01 Morbid (severe) obesity due to excess calories; G47.30 Sleep apnea, unspecified; I48.91 Unspecified atrial fibrillation; I25.5 Ischemic cardiomyopathy; I50.9 Heart failure, unspecified; I25.2 Old myocardial infarction; K21.9 Gastro-esophageal reflux disease without esophagitis; M19.90 Unspecified osteoarthritis, unspecified site; Z86.73 Personal history of transient ischemic attack (TIA), and cerebral infarction without residual deficits ==

== ENCOUNTER → 2019-04-02 | Outpatient (CLI) | payer BC, OTHER | LOC: M.WC 03-26 10:00 | DX: E11.622 Type 2 diabetes mellitus with other skin ulcer (principal); L89.890 Pressure ulcer of other site, unstageable; L97.212 Non-pressure chronic ulcer of right calf with fat layer exposed; L89.313 Pressure ulcer of right buttock, stage 3; L98.411 Non-pressure chronic ulcer of buttock limited to breakdown of skin; E11.621 Type 2 diabetes mellitus with foot ulcer; L97.511 Non-pressure chronic ulcer of other part of right foot limited to breakdown of skin; E11.319 Type 2 diabetes mellitus with unspecified diabetic retinopathy without macular edema; E11.22 Type 2 diabetes mellitus with diabetic chronic kidney disease; N18.9 Chronic kidney disease, unspecified; E66.01 Morbid (severe) obesity due to excess calories; G47.30 Sleep apnea, unspecified; I48.91 Unspecified atrial fibrillation; I25.5 Ischemic cardiomyopathy; I50.9 Heart failure, unspecified; I25.2 Old myocardial infarction; K21.9 Gastro-esophageal reflux disease without esophagitis; M19.90 Unspecified osteoarthritis, unspecified site; Z86.73 Personal history of transient ischemic attack (TIA), and cerebral infarction without residual deficits; Z68.27 Body mass index [BMI] 27.0-27.9, adult ==

== ENCOUNTER → 2019-04-16 | Outpatient (CLI) | payer BC, OTHER | LOC: M.WC 03:38 | DX: E11.622 Type 2 diabetes mellitus with other skin ulcer (principal); L89.890 Pressure ulcer of other site, unstageable; L97.212 Non-pressure chronic ulcer of right calf with fat layer exposed; E11.621 Type 2 diabetes mellitus with foot ulcer; L97.511 Non-pressure chronic ulcer of other part of right foot limited to breakdown of skin; E11.319 Type 2 diabetes mellitus with unspecified diabetic retinopathy without macular edema; E11.22 Type 2 diabetes mellitus with diabetic chronic kidney disease; N18.9 Chronic kidney disease, unspecified; E66.01 Morbid (severe) obesity due to excess calories; G47.30 Sleep apnea, unspecified; I48.91 Unspecified atrial fibrillation; I25.2 Old myocardial infarction; I25.5 Ischemic cardiomyopathy; I50.9 Heart failure, unspecified; M19.90 Unspecified osteoarthritis, unspecified site; K21.9 Gastro-esophageal reflux disease without esophagitis; Z86.73 Personal history of transient ischemic attack (TIA), and cerebral infarction without residual deficits ==

== ENCOUNTER → 2019-04-30 | Outpatient (CLI) | payer BC, OTHER ==
[~2019-04-30] MED LIST changes: +ACETAMINOPHEN500 M1 PO; +CRESTOR10 MG PO; +DILTIAZEM ER240 M2 PO; +IPRAT-ALBUT 0.5-3 ML INH; +KLOR-CON 1010 MEQ PO; +LANTUS SOL100 UNIT/1 SUBQ; +NEURONTIN100 MG PO; +OMEPRAZOLE40 MG PO; +XARELTO20 MG PO; +ZANAFLEX4 MG PO
== END ==
LOC: M.WC 01:11
DX: E11.622 Type 2 diabetes mellitus with other skin ulcer (principal); L89.890 Pressure ulcer of other site, unstageable; L97.212 Non-pressure chronic ulcer of right calf with fat layer exposed; E11.319 Type 2 diabetes mellitus with unspecified diabetic retinopathy without macular edema; E11.22 Type 2 diabetes mellitus with diabetic chronic kidney disease; N18.9 Chronic kidney disease, unspecified; E66.01 Morbid (severe) obesity due to excess calories; G47.30 Sleep apnea, unspecified; I48.91 Unspecified atrial fibrillation; I25.5 Ischemic cardiomyopathy; I50.9 Heart failure, unspecified; I25.2 Old myocardial infarction; K21.9 Gastro-esophageal reflux disease without esophagitis; M19.90 Unspecified osteoarthritis, unspecified site; Z86.73 Personal history of transient ischemic attack (TIA), and cerebral infarction without residual deficits

== ENCOUNTER 2020-07-10 12:17 | Inpatient (IN) | payer BC, OTHER ==
[~2020-07-10] VITALS: Ht 165.1 cm; Wt 82.7 kg
[2020-07-10] VITALS (11 sets, daily range): BP systolic 104–142; BP diastolic 53–83
[2020-07-10 12:42] LABS: URINE BLOOD 3+ (Negative); URINE CLARITY CLEAR; URINE COLOR YELLOW; URINE GLUCOSE-RANDOM 1+ (Negative); URINE KETONES TRACE (Negative); URINE LEUKOCYTES-REFLEX 1+ (Negative); URINE NITRITE-REFLEX NEGATIVE (Negative); URINE PROTEIN TRACE (Negative); URINE SPECIFIC GRAVITY 1.025 (1.005-1.030); URINE UROBILINOGEN 0.2 E.U./dl (0.2-1.0)
[2020-07-10 12:45] LABS: ICTOTEST (BILI CONFIRMATORY) Negative (Negative); URINE BILIRUBIN 1+ (Negative)
[2020-07-10 12:51] LABS: CRYSTALS None Seen /LPF (None Seen); HYALINE CASTS 4-10 Moderate /LPF (None Seen); MUCUS 0-3 Light strn/LPF (None Seen); SQUAMOUS 0-3 Few /LPF (0-3); URINE WBC-REFLEX 6-15 Few /HPF (0-5)
[2020-07-10 13:09] LABS: ABSOLUTE LYMPHOCYTES 1.1 thou/uL (0.8-5.3); ABSOLUTE MONOCYTES 0.7 thou/uL (0.0-1.2); ABSOLUTE NEUTROPHILS 9.6 thou/uL (1.6-8.1); BASOPHILS 0.4 %; EOSINOPHILS 0.1 %; HEMOGLOBIN 12.2 gm/dL (12.0-15.0); LYMPHOCYTES 9.3 %; MCH 27.9 pg (26.0-34.0); MCV 84.7 fL (80.0-100.0); MONOCYTES 6.5 %; NUCLEATED RBCS 0 /100WBC; PLATELET COUNT* 364 thou/uL (150-400); POLYS 83.7 %; RBC 4.37 mil/uL (4.20-5.00); RDW-CV 17.7 % (10.5-14.5); WBC 11.5 thou/uL (4.0-11.0)
[2020-07-10 13:18] LABS: CALCIUM 8.9 mg/dL (8.5-10.1); CREATININE 1.5 mg/dL (0.6-1.3); POTASSIUM 3.3 mmol/L (3.5-5.1)
[2020-07-10 13:30] LABS: ALBUMIN 2.6 g/dL (3.4-5.0); TOTAL BILIRUBIN 0.5 mg/dL (<0.1-1.0); TOTAL PROTEIN 7.1 g/dL (6.4-8.2)
[2020-07-10 13:55] LABS: APTT 27.3 Seconds (25.0-31.3); INR 1.2; PROTIME 12.4 Seconds (9.20-11.50)
[2020-07-10 14:50] LABS: CHOLESTEROL 163 mg/dL (<200); HDL CHOLESTEROL 42 mg/dL (>40); LDL CHOLESTEROL 102 mg/dL (<100); SERUM ASSESSMENT Clear; TC:HDL 3.9 Ratio (Not establshd); TRIGLYCERIDE 95 mg/dL (<150); VLDL 19 mg/dL (<40)
--- NOTE | 2020-07-10 14:53 | EKG ---
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: ROSE : 1950 Requested By: Truong Snider Order Number: [id number] MD: Jesus Khan Measurements Intervals Ora Rate: 108 P: 28 DC: 163 QRS: -6 QRSD: 110 T: 152 QT: 298 QTc: 400 Interpretive Statements Sinus tachycardia Ventricular premature complex LVH with IVCD and secondary repol abnrm Anterior ST elevation, probably due to LVH Compared to ECG 01/25/2019 23:15:52 Ventricular premature complex(es) now present Atrial fibrillation no longer present ST (T wave) deviation still present Electronically Signed On 07-10-2020 14:53:37 CDT by Jesus Khan [email or web address] <ELECTRONICALLY SIGNED> By: Jesus Khan MD, [facility] 07/10/20 1453 1314 1314 Jesus Khan MD, [facility] /EPI
--- NOTE | 2020-07-10 16:34 | 2DMMODE ---
[place] [address] 2 D/M-MODE ECHOCARDIOGRAM Name: KRAFTVICKIE M Room: [address] IN .R.#: [id number] Admission: 07/10/20 Attend Phys: Myla Castañeda, Discharge: Date of : 52 Date of Service: 07/10/20 1634 Report #: [id number] THIS REPORT FOR: cc: Payton Knott Reuel M. DO Blick,Jesus Choudhury MD [facility] ~ APPROVED REPORT Study performed: 07/10/2020 15:58:57 EXAM: Comprehensive 2D, Doppler, and color-flow Echocardiogram Patient Location: In-Patient Room #: 005 Status: routine BSA: 1.85 HR: 95 bpm BP: 149/83 mmHg Rhythm: NSR Other Information Study Quality: Good Indications Acute [place] 2D Dimensions IVSd: 18.31 (7-11mm) LVOT Diam: 19.71 (18-24mm) LVDd: 39.27 mm PWd: 13.17 (7-11mm) Ascending Ao: 28.18 (22-36mm) LVDs: 35.33 (25-40mm) Aortic Root: 28.99 mm Volumes Left Atrial Volume (Systole) LA ESV Index: 21.20 mL/m2 Aortic Valve AoV Peak Shekhar.: 1.14 m/s AO Peak Gr.: 5.17 mmHg LVOT Max P.17 mmHg AO Mean Gr.: 2.98 mmHg LVOT Mean P.95 mmHg LVOT Max V: 0.74 m/s AO V2 VTI: 14.14 cm LVOT Mean V: 0.44 m/s YAN (VTI): 1.67 cm2 LVOT V1 VTI: 7.73 [place] [address] 2 D/M-MODE ECHOCARDIOGRAM Name: VICKIE KRAFT Room: [address] IN ..#: [id number] Admission: 07/10/20 Attend Phys: Myla Castañeda, Discharge: Date of : 52 Date of Service: 07/10/20 1634 Report #: [id number] TDI Medial E' Shekhar.: 0.03 m/s Lateral E' Shekhar.: 0.06 m/s Pulmonary Valve PV Peak Shekhar.: 1.08 m/s PV Peak Gr.: 4.63 mmHg Tricuspid Valve RAP Estimate: 5.00 mmHg TR Peak Gr.: 24.75 mmHg RVSP: 29.00 mmHg PA Pressure: 29.00 mmHg Left Ventricle The left ventricle is normal size. There is global hypokinesis of the left ventricle. Moderate concentric left ventricular hypertrophy. Left ventricular systolic function is mildly decreased. LVEF is 40-45%. Grade I - abnormal relaxation pattern. Right Ventricle The right ventricle is normal size. The right ventricular systolic function is normal. Pacemaker lead is present in the right ventricle. Atria The left atrium size is normal. The right atrium size is normal. Aortic Valve The Aortic valve is sclerotic. Trace aortic regurgitation. There is no aortic valvular stenosis. Mitral Valve The mitral valve is normal in structure. Mild mitral annular calcification. Mild mitral regurgitation. No evidence of mitral valve stenosis. Tricuspid Valve The tricuspid valve is normal in structure. Trace tricuspid regurgitation. No pulmonary hypertension. Pulmonic Valve The pulmonary valve is normal in structure. There is no pulmonic valvular regurgitation. Great Vessels The aortic root is normal in size. IVC is normal in size and collapses >50% [place] [address] 2 D/M-MODE ECHOCARDIOGRAM Name: VICKIE KRAFT Room: [address] IN [facility]#: [id number] Admission: 07/10/20 Attend Phys: Myla Castañeda, Discharge: Date of : 52 Date of Service: 07/10/20 1634 Report #: [id number] Pericardium There is no pericardial effusion. <Conclusion> Moderate concentric left ventricular hypertrophy. LVEF is 40-45%. Mild mitral regurgitation. Trace tricuspid regurgitation. No pulmonary hypertension. <ELECTRONICALLY SIGNED> By: Jesus Khan MD, [facility] 07/10/20 1634 1634 163 Jesus Khan MD, [facility] /INF
[2020-07-10] MEDS ORDERED: CARVEDILOL12.5 MG PO (19:23)
[2020-07-11] VITALS (13 sets, daily range): BP systolic 93–159; BP diastolic 40–77
[2020-07-11 08:05] LABS: HEMATOCRIT 33.7 % (37.0-47.0); HEMOGLOBIN 10.9 gm/dL (12.0-15.0); MCH 27.9 pg (26.0-34.0); MCHC 32.5 g/dL (28.0-37.0); MCV 85.8 fL (80.0-100.0); MPV 8.2 fl. (7.2-11.1); RBC 3.92 mil/uL (4.20-5.00); RDW-CV 18.1 % (10.5-14.5); WBC 11.8 thou/uL (4.0-11.0)
[2020-07-11 08:27] LABS: ALBUMIN 2.4 g/dL (3.4-5.0); CALCIUM 8.6 mg/dL (8.5-10.1); CREATININE 1.5 mg/dL (0.6-1.3); MAGNESIUM 1.8 mg/dL (1.8-2.4); POTASSIUM 3.5 mmol/L (3.5-5.1); TOTAL BILIRUBIN 0.4 mg/dL (<0.1-1.0); TOTAL PROTEIN 6.5 g/dL (6.4-8.2)
[2020-07-12 00:37] VITALS: BP 105/51
[2020-07-12 04:54] VITALS: BP 133/54
[2020-07-12 05:47] LABS: HEMATOCRIT 32.8 % (37.0-47.0); HEMOGLOBIN 10.8 gm/dL (12.0-15.0); MCH 27.8 pg (26.0-34.0); MCHC 32.9 g/dL (28.0-37.0); MCV 84.6 fL (80.0-100.0); MPV 8.6 fl. (7.2-11.1); RBC 3.88 mil/uL (4.20-5.00); WBC 10.3 thou/uL (4.0-11.0)
[2020-07-12 06:05] LABS: ALBUMIN 2.3 g/dL (3.4-5.0); CALCIUM 8.5 mg/dL (8.5-10.1); CREATININE 1.3 mg/dL (0.6-1.3); MAGNESIUM 1.9 mg/dL (1.8-2.4)
[2020-07-12 06:11] LABS: POTASSIUM 2.9 mmol/L (3.5-5.1)
[2020-07-12 06:32] LABS: TOTAL BILIRUBIN 0.3 mg/dL (<0.1-1.0)
[2020-07-12 06:33] LABS: TOTAL PROTEIN 6.3 g/dL (6.4-8.2); TROPONIN-I LEVEL 0.5 ng/mL (<0.06)
[2020-07-12 09:00] VITALS: BP 98/44
[2020-07-12 12:00] VITALS: BP 135/53
[2020-07-12 16:00] VITALS: BP 103/34
[2020-07-12 20:00] VITALS: BP 132/52
[2020-07-13 00:23] VITALS: BP 104/41
[2020-07-13 03:30] VITALS: BP 133/50
[2020-07-13 08:00] VITALS: BP 113/49
[2020-07-13 12:51] VITALS: BP 176/56
[2020-07-13 16:00] VITALS: BP 103/43
[2020-07-13 20:00] VITALS: BP 116/45
[2020-07-14 04:13] VITALS: BP 91/36
[2020-07-14 08:00] VITALS: BP 111/45
[2020-07-14 17:28] VITALS: BP 105/50
[2020-07-14 20:30] VITALS: BP 121/49
[2020-07-15 07:25] VITALS: BP 126/75
[2020-07-15 09:58] VITALS: BP 126/75
[2020-07-15] MEDS ORDERED: CARDIZEM CD120 MG PO (10:01)
[2020-07-15] MEDS ORDERED: CIPRO500 M1 PO (10:01)
[2020-07-15 10:54] VITALS: BP 126/75
[2020-07-15 11:57] VITALS: BP 126/75
--- NOTE | 2020-07-21 22:25 | EEG ---
[address] [address] EEG STUDY REPORT Name: VICKIE KRAFT Room: [address] IN M.R.#: [id number] Admission: 07/10/20 Attend Phys: Myla Castañeda MD Discharge: 07/15/20 Date of : 52 Report #: [id number] THIS REPORT FOR: cc: Payton Knott Reuel M. DO Khosla, Parveen K. MD ~ DOC #: [id number] Raheem Becker MD DATE OF SERVICE: 07/11/2020 This patient is being evaluated for altered mental status. EEG was done by placing the electrode by standard 10-20 system of electrode placement. Both referential and sequential montages were used for recording. Background activity in this patient's EEG is about 9 Hz and 30 microvolt. It is intermixed with theta range slowing. T6 electrode artifact as well as some other electrode artifacts were noticed. Photic stimulation is unremarkable. The patient became drowsy and that is associated with bilateral slowing and vertex sharp waves. IMPRESSION: This patient's EEG is intermixed with theta range slowing on both sides. That is a nonspecific abnormality which can occur with dementia, encephalopathy, effects of psychotropic medication, etc. Clinical correlation is recommended. Raheem Becker MD PK/MAX <ELECTRONICALLY SIGNED> By: Raheem Becker MD 07/21/20 2225 1559 1632Ptaylor Becker MD /nt
== END 2020-07-15 15:20 | disposition home health service (06) | DRG 689 ==
LOC: M.ERS 12:17 → M.ICU 14:24 → M.TBA-ER 14:24 → M.ICU 15:45 → M.2W 07-11 14:14 → M.ORTHSURG 07-14 10:29
PROVIDERS: Emergency Medicine Emergency Medical Services; ADMIT Internal Medicine; ATTEND Internal Medicine
DX: N39.0 Urinary tract infection, site not specified (principal); I21.A1 Myocardial infarction type 2; G93.41 Metabolic encephalopathy; I50.42 Chronic combined systolic (congestive) and diastolic (congestive) heart failure; I13.0 Hypertensive heart and chronic kidney disease with heart failure and stage 1 through stage 4 chronic kidney disease, or unspecified chronic kidney disease; I69.351 Hemiplegia and hemiparesis following cerebral infarction affecting right dominant side; J44.9 Chronic obstructive pulmonary disease, unspecified; I25.10 Atherosclerotic heart disease of native coronary artery without angina pectoris; E78.5 Hyperlipidemia, unspecified; E11.22 Type 2 diabetes mellitus with diabetic chronic kidney disease; N18.9 Chronic kidney disease, unspecified; I25.5 Ischemic cardiomyopathy; E11.51 Type 2 diabetes mellitus with diabetic peripheral angiopathy without gangrene; E87.6 Hypokalemia; G89.29 Other chronic pain; L89.159 Pressure ulcer of sacral region, unspecified stage; I48.0 Paroxysmal atrial fibrillation; G47.33 Obstructive sleep apnea (adult) (pediatric); E78.00 Pure hypercholesterolemia, unspecified; Z96.653 Presence of artificial knee joint, bilateral; Z20.822 Contact with and (suspected) exposure to COVID-19; Z95.0 Presence of cardiac pacemaker; I25.2 Old myocardial infarction; Z90.711 Acquired absence of uterus with remaining cervical stump; Z98.891 History of uterine scar from previous surgery; Z89.512 Acquired absence of left leg below knee; Z79.01 Long term (current) use of anticoagulants; Z79.899 Other long term (current) drug therapy; Z79.4 Long term (current) use of insulin; Z88.5 Allergy status to narcotic agent; Z88.0 Allergy status to penicillin; Z88.2 Allergy status to sulfonamides

== ENCOUNTER 2020-08-04 10:49 | Emergency (ER) | payer MEDICARE, OTHER ==
[~2020-08-04] VITALS: Ht 172.7 cm; Wt 79.6 kg
[~2020-08-04 10:49] MED LIST changes: +CARDIZEM CD120 MG PO; +CIPRO500 M1 PO
[2020-08-04 13:23] VITALS: BP 137/80
== END 2020-08-04 13:24 | disposition home or self-care (01) ==
LOC: M.ERS 10:49
DX: S02.2XXA Fracture of nasal bones, initial encounter for closed fracture (principal); I25.10 Atherosclerotic heart disease of native coronary artery without angina pectoris; I10 Essential (primary) hypertension; E78.00 Pure hypercholesterolemia, unspecified; E11.9 Type 2 diabetes mellitus without complications; J44.9 Chronic obstructive pulmonary disease, unspecified; Z95.1 Presence of aortocoronary bypass graft; Z96.653 Presence of artificial knee joint, bilateral; Z90.711 Acquired absence of uterus with remaining cervical stump; Z98.890 Other specified postprocedural states; Z86.73 Personal history of transient ischemic attack (TIA), and cerebral infarction without residual deficits; Z88.5 Allergy status to narcotic agent; Z88.0 Allergy status to penicillin; Z88.2 Allergy status to sulfonamides; Z88.8 Allergy status to other drugs, medicaments and biological substances; X58.XXXA Exposure to other specified factors, initial encounter; Y93.89 Activity, other specified; Y92.89 Other specified places as the place of occurrence of the external cause; Y99.8 Other external cause status